=== PATIENT | female | born 1985 | race Caucasian/White ===

== ENCOUNTER 2017-03-28 19:06 | Emergency (ER) | payer OTHER ==
[2017-03-28 19:37] VITALS: BP 123/86; TEMP 99.4; O2SAT 97
[2017-03-28] MEDS ORDERED: LIDOCAINE VIS-MYLANTA 30 ML UD PO ONE (19:39)
--- NOTE | 2017-03-28 20:29 | ED.PDOC ---
History of Present Illness - General Chief Complaint: Abdominal Pain Stated Complaint: abd cramping pains Time Seen by Provider: 03/28/17 19:22 Source: patient Exam Limitations: no limitations - History of Present Illness Initial Comments: the patient is a 32-year-old female presenting to the emergency room secondary to abdominal pain primarily in the periumbilical and epigastric area worsening over the last week. She is apparently had much longer term issues with nausea and indigestion over the past 6 months to a year. She is taking letrozole for fertility purposes. Over the last week she would experience epigastric pain when she would go to eat. She has not been throwing up that she has been having some nausea. No black stools. She does report some intermittent chronic diarrhea over a very long time. No weight loss. No fever. No real right upper quadrant pain. Timing/Duration: 1 week Severity: moderate Improving Factors: nothing Worsening Factors: eating Associated Symptoms: loss of appetite, nausea/vomiting Allergies/Adverse Reactions: Allergies Acetaminophen Allergy (Verified 03/28/17 19:37) Review of Systems - Review of Systems Constitutional: States: no symptoms reported EENTM: States: no symptoms reported Respiratory: States: no symptoms reported Cardiology: States: no symptoms reported Gastrointestinal/Abdominal: States: abdominal pain, nausea Genitourinary: States: no symptoms reported Musculoskeletal: States: no symptoms reported Skin: States: no symptoms reported Neurological: States: anxiety Endocrine: States: no symptoms reported All other Systems: No Change from Baseline Past Medical History (General) - Patient Medical History Hx Hypertension: Yes - not on meds anymore, after losing weight Hx Diabetes: No Surgical History: other - Vaccination History Hx Tetanus, Diphtheria Vaccination: Yes Hx Influenza Vaccination: No - Social History Hx Tobacco Use: Yes Hx Alcohol Use: Yes Hx Substance Use Treatment: Yes - MJ - Female History Patient is a Female of Child Bearing Age (10 -59 yrs old): Yes Patient : No - unk Family Medical History - Family History Mother Living Status: Still Living Hx Family Hypertension: Yes Hx Cardiac Disease: Yes Hx Family Diabetes: Yes Hx Family Cancer: Yes Physical Exam - Physical Exam General Appearance: Alert, Comfortable, No apparent distress Eye Exam: bilateral normal Ears, Nose, Throat: hearing grossly normal, normal ENT inspection, normal pharynx Neck: full range of motion, supple Respiratory: lungs clear, normal breath sounds, no respiratory distress Cardiovascular/Chest: normal peripheral pulses, regular rate, rhythm, no edema Peripheral Pulses: radial,right: 2+, radial,left: 2+ Gastrointestinal/Abdominal: soft, other - pigastric and periumbilical discomfort to palpation. No rebound or peritoneal signs. No definite palpable mass. 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 She was given a GI cocktail as a trial for symptom relief. The patient left AGAINST MEDICAL ADVICE before we could even reevaluate her. the patient left without telling anyone that she was leaving.the presumptive diagnosis here is gastritis. 03/28/17 20:31 Departure - Departure Clinical Impression: Gastritis Qualifiers: Gastritis type: unspecified gastritis Chronicity: acute Gastritis bleeding: without bleeding Qualified Code(s): K29.00 - Acute gastritis without bleeding Disposition: Left Against Medical Advice Condition: Fair Departure Forms: ED Discharge - Pt. Copy, Patient Portal Self Enrollment Instructions: DI for Abdominal Pain-Adult Diet: bland diet Activity: increase activity as tolerated
== END 2017-03-28 20:15 | disposition left against medical advice (07) ==
LOC: ER 19:06
DX: K29.00 Acute gastritis without bleeding (principal); Z87.891 Personal history of nicotine dependence

== ENCOUNTER → 2019-05-14 | Outpatient (CLI) | payer OTHER | LOC: GMAJS 14:06 | PROVIDERS: ATTEND Physician Assistant | DX: R05 Cough (principal); J02.9 Acute pharyngitis, unspecified ==

== ENCOUNTER 2019-05-19 11:11 | Emergency (ER) | payer OTHER ==
[2019-05-19] MEDS ORDERED: SODIUM CHLORIDE 0.9% 1000ML 1,000 ML IVS PRN (12:14)
[2019-05-19] MEDS ORDERED: SODIUM CHLORIDE 0.9% (FLUSH) 10 ML SYG IV PRN (12:14)
[2019-05-19] MEDS ORDERED: ONDANSETRON INJ 4 MG/2 ML VIAL IV ONE ×2 (12:14→15:02)
[2019-05-19] MEDS ORDERED: SODIUM CHLORIDE 0.9% 1000ML 1,000 ML IVS ONE (15:02)
[2019-05-19] MEDS: SODIUM CHLORIDE 0.9% 1000ML 1,000 ML IVS ONE ×2 (15:03→15:10)
--- NOTE | 2019-05-19 15:13 | ED.PDOC ---
History of Present Illness - General Chief Complaint: General Stated Complaint: Nausea and vomiting Time Seen by Provider: 05/19/19 12:14 Source: patient, RN notes reviewed, Vital Signs reviewed Exam Limitations: no limitations - History of Present Illness Initial Comments: Patient is a 34-year-old white female who presents with complaints of nausea, vomiting and dehydration. Patient started a new medication yesterday, oral naloxone, and then started vomiting explosively a couple of hours after that. Patient was vomiting all night long. Patient complains of abdominal pain, generalized weakness and fatigue as well as continued nausea. The abdominal pain is mild in nature. It is cramping in nature. By way of history patient started this medication because of the fact that she is an alcoholic. Normally she will drink a gallon of vodka over 3-day period. Patient is trying to become clean and sober. She is undergoing counseling with her stepchildren and . Water food makes the nausea, vomiting and abdominal pain worse. Nothing makes it better. Timing/Duration: 24 hours Severity: severe Improving Factors: nothing Worsening Factors: eating Associated Symptoms: loss of appetite, malaise, nausea/vomiting Allergies/Adverse Reactions: Allergies Acetaminophen Allergy (Verified 03/28/17 19:37) Home Medications: Ambulatory Orders Ondansetron Odt [Zofran ODT] 8 mg PO Q6H #12 tab 05/19/19 Review of Systems - Review of Systems Constitutional: States: see HPI, weakness EENTM: States: see HPI, throat pain Respiratory: States: no symptoms reported Cardiology: States: no symptoms reported Gastrointestinal/Abdominal: States: see HPI, abdominal pain, nausea, vomiting. Denies: diarrhea Genitourinary: States: no symptoms reported Musculoskeletal: States: no symptoms reported Skin: States: no symptoms reported Neurological: States: anxiety, headache, weakness. Denies: numbness, paresthesia, tingling, tremors Past Medical History (General) - Patient Medical History Hx Dementia: No Hx Asthma: No Hx of COPD: No Hx Cardiac Disorders: No Hx Congestive Heart Failure: No Hx Pacemaker: No Hx Hypertension: Yes - not on meds anymore, after losing weight Hx Thyroid Disease: No Hx Diabetes: No Hx Other - free text: Alcoholism Surgical History: other - Vaccination History Hx Tetanus, Diphtheria Vaccination: Yes Hx Influenza Vaccination: No - Social History Hx Tobacco Use: Yes Hx Alcohol Use: Yes Hx Substance Use Treatment: Yes - MJ - Female History Patient : No - unk Family Medical History - Family History Mother Living Status: Still Living Hx Family Hypertension: Yes Hx Cardiac Disease: Yes Hx Family Diabetes: Yes Hx Family Cancer: Yes Physical Exam - Physical Exam General Appearance: Alert, Anxious, Restless, Well Developed, Well Groomed, Well Nourished Eye Exam: bilateral normal Ears, Nose, Throat: hearing grossly normal, normal ENT inspection, normal pharynx Neck: non-tender, full range of motion, supple, normal inspection Respiratory: chest non-tender, lungs clear, normal breath sounds, no respiratory distress, no accessory muscle use Cardiovascular/Chest: normal peripheral pulses, no edema, no gallop, no JVD, no murmur, tachycardia Peripheral Pulses: radial,right: 2+, radial,left: 2+ Gastrointestinal/Abdominal: normal bowel sounds, soft, no organomegaly, no pulsatile mass, tenderness - Mild diffuse discomfort to palpation Extremity: normal range of motion, non-tender, normal inspection, no pedal edema 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 05/19/19 16:13 Patient is markedly improved after 2 L of IV fluids and IV Zofran x2. I believe patient's symptoms are secondary to starting the new medication. Whether this is a true allergic reaction or she had alcohol in her system and then took the medicine is unclear to me. Plan on discharge home with a prescription for Zofran. I have recommended AA or other counseling. Patient does have a therapist she is seen. Plan on discharge home at this time. I discussed this plan of care with the patient and she voices understanding and agreement. Akbar Pan M.D. #[id number] - Results/Orders Results/Orders: 05/19/19 12:14 Sodium Chloride 0.9% (Flush) [Saline Flush Syringe] 10 ml IV PRN PRN Sodium Chloride 0.9% 1000ML [Ns 1000 ml] 1,000 ml IVS .QD 05/19/19 12:15 EKG Assessment ONCE EKG STAT 05/20/19 12:15 EKG STAT Laboratory Results - last 24 hr 05/19/19 05/19/19 05/19/19 12:27 12:27 12:36 WBC 10.9 H RBC 5.90 H Hgb 17.4 H Hct 50.8 H MCV 86.0 MCH 29.4 MCHC 34.2 RDW 13.7 Plt Count 228 MPV 10.1 Absolute Neuts (auto) 8.10 H Absolute Lymphs (auto) 1.60 Absolute Monos (auto) 1.10 H Absolute Eos (auto) 0.10 Absolute Basos (auto) 0.10 Neutrophils % 74.1 Lymphocytes % 14.3 L Monocytes % 9.9 H Eosinophils % 1.0 Basophils % 0.7 Sodium 137 Potassium 4.4 Chloride 96 L Carbon Dioxide 28 Anion Gap 17.4 BUN 15 Creatinine 0.74 BUN/Creatinine Ratio 20.3 H Random Glucose 101 Serum Osmolality 274.8 L Calcium 10.4 H Total Bilirubin 0.8 Direct Bilirubin 0.1 Indirect Bilirubin 0.7 AST 92 H ALT 102 H Alkaline Phosphatase 60 Serum Total Protein 8.2 Albumin 4.7 Lipase 26 Urine Color Dk yellow H Urine Appearance Clear Urine pH 6.5 Ur Specific [place] 1.025 Urine Protein 100 H Urine Glucose (UA) Negative Urine Ketones >=160 Urine Blood Negative Urine Nitrite Negative Urine Bilirubin Small H Urine Urobilinogen 0.2 Ur Leukocyte Esterase Negative Urine RBC 1-3 Urine WBC 1-3 Ur Epithelial Cells 3-5 Urine Bacteria Rare Urine Mucus Large Departure - Departure Clinical Impression: Dehydration Nausea and vomiting Qualifiers: Vomiting type: unspecified Vomiting Intractability: intractable Qualified Code(s): R11.2 - Nausea with vomiting, unspecified Time of Disposition: 16:16 Disposition: Discharge to Home or Self Care Condition: Good Departure Forms: ED Discharge - Pt. Copy, Patient Portal Self Enrollment Diet: full liquid diet Referrals: Jasbir Bautista MD [Primary Care Provider] - 1-5 Days Prescriptions: Ondansetron Odt [Zofran ODT] 8 mg PO Q6H #12 tab Home Medications: Ambulatory Orders Ondansetron Odt [Zofran ODT] 8 mg PO Q6H #12 tab 05/19/19
[2019-05-19 15:43] VITALS: BP 118/82; TEMP 97.4; O2SAT 98
== END 2019-05-19 16:22 | disposition home or self-care (01) ==
LOC: ER 11:11
DX: R11.2 Nausea with vomiting, unspecified (principal); E86.0 Dehydration; F10.20 Alcohol dependence, uncomplicated; Z79.899 Other long term (current) drug therapy; Z88.6 Allergy status to analgesic agent; Z87.891 Personal history of nicotine dependence
CPT/HCPCS: 36415; 80048; 80076; 81001; 83690; 85025; J2405; J7030

== ENCOUNTER → 2020-04-14 | Day surgery (SDC) | payer OTHER ==
[~2020-04-14] MED LIST: LACTATED RINGERS 1,000 ML ONE
== END ==
LOC: AMB 05:40
PROVIDERS: ATTEND Surgery
DX: K64.8 Other hemorrhoids (principal); Z53.9 Procedure and treatment not carried out, unspecified reason